=== PATIENT | male | born 1965 | race Caucasian/White ===

== ENCOUNTER → 2017-01-12 | Outpatient (CLI) | payer OTHER | LOC: EMI 18:00 | DX: M50.123 Cervical disc disorder at C6-C7 level with radiculopathy (principal); M99.51 Intervertebral disc stenosis of neural canal of cervical region; M50.322 Other cervical disc degeneration at C5-C6 level; M50.222 Other cervical disc displacement at C5-C6 level | CPT/HCPCS: 72141 ==

== ENCOUNTER → 2022-02-15 | Outpatient (CLI) | payer MEDICARE, OTHER | LOC: KOH-I 13:31 | DX: S80.911A Unspecified superficial injury of right knee, initial encounter (principal); M25.461 Effusion, right knee; M25.561 Pain in right knee; M23.8X1 Other internal derangements of right knee; M76.9 Unspecified enthesopathy, lower limb, excluding foot; S83.241A Other tear of medial meniscus, current injury, right knee, initial encounter | CPT/HCPCS: 73721 ==